=== PATIENT | male | born 1970 | race American Indian/Alaskan Native ===

== ENCOUNTER 2019-03-20 13:25 | Inpatient (IN) | payer OTHER ==
[2019-03-20 13:46] LABS: Basophils # (Auto) 0.1 K/mm3 (0.0-0.1); Basophils % (Auto) 0.5 % (0.0-1.8); Eosinophils % (Auto) 0.1 % (0.0-4.3); Hematocrit 43.5 % (35.5-45.6); Hemoglobin 14.8 gm/dl (11.8-15.2); Lymphocytes # (Auto) 1.6 K/mm3 (1.2-5.4); Lymphocytes % (Auto) 11.4 % (13.4-35.0); Mean Corpuscular HGB Conc 34 % (32-34); Mean Corpuscular Volume 82 fl (84-94); Monocytes % (Auto) 7.3 % (0.0-7.3); Platelet Count 256 K/mm3 (140-440); Red Blood Count 5.29 M/mm3 (3.65-5.03); Red Cell Distribution Width 12.2 % (13.2-15.2)
[2019-03-20 14:12] LABS: Alanine Aminotransferase 11 units/L (7-56); Albumin 4.1 g/dL (3.9-5); BUN/Creatinine Ratio 12; Blood Urea Nitrogen 12 mg/dL (9-20); Calcium 9.3 mg/dL (8.4-10.2); Hemolysis Index 9
[2019-03-20] MEDS ORDERED: BENTYL PO ONE (14:58)
[2019-03-20] MEDS ORDERED: ZOFRAN ODT PO ONE (14:58)
--- NOTE | 2019-03-20 14:58 | Emergency Department Report ---
ED Abdominal Pain HPI - General Chief Complaint: Abdominal Pain Stated Complaint: BODY WEAK/STOMACH PAIN Time Seen by Provider: 03/20/19 14:48 Source: patient Mode of arrival: Ambulatory Limitations: No Limitations - History of Present Illness Initial Comments: This is a 48-year-old male who presents to ED complaining of left-sided lower pelvic pain and back pain 3 days. Patient states that pain is localized left flank area that started Tuesday morning. Patient has Tuesday he had food from [employer] , otherwise no abnormal foods. Patient also states that he's had some nausea, feeling weak and intermittent chills. He denies dysuria, fever, diar oralia - Related Data Previous Rx's Medication Instructions Recorded Last Taken Type Aspirin EC 81 mg PO ONCE #30 tablet. 05/03/13 Unknown Rx Allergies Allergy/AdvReac Type Severity Reaction Status Date / Time No Known Allergies Allergy Verified 03/20/19 13:27 ED Review of Systems ROS: Stated complaint: BODY WEAK/STOMACH PAIN Other details as noted in HPI Comment: All other systems reviewed and negative ED Past Medical Hx - Past Medical History Hx Hypertension: No Hx CVA: No Hx Heart Attack/AMI: No Hx Congestive Heart Failure: No Hx Diabetes: No Hx GERD: No Hx Arthritis: No Hx Asthma: No Hx COPD: No Additional medical history: heart murmer - Surgical History Past Surgical History?: No - Social History Smoking Status: Never Smoker Substance Use Type: None - Medications Home Medications: Home Medications Medication Instructions Recorded Confirmed Last Taken Type Aspirin EC 81 mg PO ONCE #30 tablet. 05/03/13 03/20/19 Unknown Rx ED Physical Exam - General Limitations: No Limitations General appearance: alert, in no apparent distress - Head Head exam: Present: atraumatic, normocephalic - Eye Eye exam: Present: normal appearance - ENT ENT exam: Present: mucous membranes moist - Neck Neck exam: Present: normal inspection - Respiratory Respiratory exam: Present: normal lung sounds bilaterally. Absent: respiratory distress - Cardiovascular Cardiovascular Exam: Present: regular rate, normal rhythm. Absent: systolic murmur, diastolic murmur, rubs, gallop - GI/Abdominal GI/Abdominal exam: Present: soft, tenderness (to palpation of lower left quad), normal bowel sounds. Absent: distended - Rectal Rectal exam: Present: deferred - Extremities Exam Extremities exam: Present: normal inspection - Back Exam Back exam: Present: normal inspection - Neurological Exam Neurological exam: Present: alert, oriented X3 - Psychiatric Psychiatric exam: Present: normal affect, normal mood - Skin Skin exam: Present: warm, dry, intact, normal color. Absent: rash ED Course Vital Signs 03/20/19 03/20/19 03/20/19 13:30 23:34 23:41 Temperature 98.6 F 98.5 F 98.5 F Pulse Rate 104 H 90 90 Respiratory 18 18 18 Rate Blood Pressure 143/93 132/77 132/77 [Left] O2 Sat by Pulse 97 99 99 Oximetry - Reevaluation(s) Reevaluation #1: Patient is comfortable in his room. Patient is currently receiving 1 L of fluids and Unasyn. Vitals are stable patient is in no acute distress. 03/20/19 18:57 - Consultations Consultation #1: Hospitalist is Dr. Bowden made known about patient's case patient is to be admitted to the floor. 03/20/19 18:55 Consultation #2: Surgical attending Dr. Williamson was notified about the patient's case. Dr. Williamson states that he will come and assess the patient in the morning. 03/20/19 18:56 ED Medical Decision Making - Lab Data Result diagrams: 03/21/19 00:28 03/21/19 00:28 - Radiology Data Radiology results: report reviewed, image reviewed - Medical Decision Making This is a 48-year-old male who presents to ED complaining of left-sided flank pain and some nausea and back pain. CBC, CMP, urinalysis ordered. CBC shows mild leukocytosis. Urinalysis positive for leukocyte esterase, CT scan of the abdomen and pelvis ordered. See report above Pt received bentyl and Zofran in the ED. Pulse rate slightly elevated but otherwise Vital signs are normal Discussed findings with the patient. Discussed the patient and he will be admitted to the floor to his served within 24-48 hours. Patient is started on 1 L of fluids as well as antibiotics Critical care attestation.: If time is entered above; I have spent that time in minutes in the direct care of this critically ill patient, excluding procedure time. ED Disposition Clinical Impression: Acute diverticulitis Disposition: OP ADMIT IP TO THIS HOSP Is pt being admited?: Yes Does the pt Need Aspirin: No Condition: Stable
[2019-03-20 15:00] LABS: Bacteria,Urine 1+ /HPF (Negative); Bilirubin,Urine NEG (Negative); Blood,Urine MOD (Negative); Color,Urine Amber (Yellow); Mucus,Urine 3+ /HPF; Urobilinogen,Urine < 2.0 mg/dL (<2.0)
--- NOTE | 2019-03-20 17:26 | Cat Scan Report ---
CT abdomen pelvis wo con INDICATION / CLINICAL INFORMATION: Left lower quadrant pain with nausea, vomiting and dizziness. TECHNIQUE: All CT scans at this location are performed using CT dose reduction for ALARA by means of automated e xposure control. COMPARISON: None available. FINDINGS: ABDOMEN: The liver, spleen, gallbladder, bile ducts, pancreas, right adrenal gland and left kidney ar e normal. There is a small simple cyst-appearing lesion in the right kidney. There is a 2 cm left adr enal nodule which measures 3 Hounsfield units. No adenopathy is seen. The lung bases are clear. PELVIS: There is a fairly long segment of moderate concentric bowel wall thickening involving the dis jn descending colon and proximal sigmoid colon. Multiple diverticula are present in this region and the appearance is more suggestive of diverticulitis than perforated neoplasm. There is moderate infla mmation in the pericolonic fat. No definite extraluminal gas is seen. There is no evidence of bowel o bstruction or pneumoperitoneum. I do not identify an abscess. A normal appendix is present. The distal ureters, urinary bladder and prostate gland are normal. I do not identify a hernia. No acute osseous abnormality is seen. IMPRESSION: 1. Moderate, acute diverticulitis near the junction of the descending and sigmoid colon without absce ss. After the patient's acute episode resolves, colonoscopy may be helpful in excluding underlying ne oplasm. 2. 2 cm left adrenal adenoma. Signer Name: Jesus Faustin MD Signed: 03/20/2019 5:21 PM Workstation Name: [id number]
[2019-03-20] MEDS ORDERED: NACL 0.9% 1000 ML 1,000 ML IV ONE (18:33)
[2019-03-20] MEDS ORDERED: ZOSYN/NS 2.25 GM/50ML 2.25 GM/50 ML BAG IV ONE (18:34)
--- NOTE | 2019-03-20 20:52 | Event Note ---
Date: 03/20/19 Discussed case with ED and reviewed record. Will see patient tomorrow.
[2019-03-21] MEDS ORDERED: APRESOLINE IV PRN (01:12)
[2019-03-21 01:13] LABS: Basophils % (Auto) 0.3 % (0.0-1.8); Eosinophils % (Auto) 0.2 % (0.0-4.3); Hematocrit 42.5 % (35.5-45.6); Hemoglobin 13.8 gm/dl (11.8-15.2); Lymphocytes # (Auto) 1.5 K/mm3 (1.2-5.4); Lymphocytes % (Auto) 12.1 % (13.4-35.0); Mean Corpuscular HGB Conc 33 % (32-34); Mean Corpuscular Volume 84 fl (84-94); Monocytes # (Auto) 1.1 K/mm3 (0.0-0.8); Monocytes % (Auto) 8.8 % (0.0-7.3); Platelet Count 245 K/mm3 (140-440); Red Blood Count 5.09 M/mm3 (3.65-5.03); Red Cell Distribution Width 12.1 % (13.2-15.2)
--- NOTE | 2019-03-21 01:17 | History and Physical Report ---
<ANGELICA RASHID - Last Filed: 03/21/19 01:37> History of Present Illness Date of examination: 03/21/19 Date of admission: 03/20/19 19:09 Chief complaint: Abdominal pain History of present illness: 48-year-old -[place] male with history of obesity and hypertension who presents to [facility] ED with complaints of left upper quadrant and left lower quadrant pain with radiation to left flank. Patient states that he started experiencing intermittent left upper quadrant and left lower quadrant pain on Tuesday. He took a muscle relaxer and the pain went away. Yesterday morning he started having increased abdominal pain associated with left flank pain. He felt chills, weakness, and had bad taste in his mouth, and decided to come in for evaluation and treatment. Admits: Mild headache, fatigue, and malaise Denies: Nausea, vomiting, diarrhea, cough, hemoptysis, hematuria, dysuria or recent sick contacts Past History Past Medical History: other (heart murmur). denies: hypertension (review of medical records reveals hx of htn diagnosed 2013) Past Surgical History: denies: No surgical history Social history: lives with family. denies: smoking Family history: other (mother has history of diverticulitis) Medications and Allergies Allergies Allergy/AdvReac Type Severity Reaction Status Date / Time No Known Allergies Allergy Verified 03/20/19 13:27 Home Medications Medication Instructions Recorded Confirmed Last Taken Type Aspirin EC 81 mg PO ONCE #30 tablet. 05/03/13 03/20/19 Unknown Rx Active Meds: Active Medications Clonidine HCl (Catapres-Tts Patch) 0.2 mg TD QWEEK ZONIA Hydralazine HCl (Apresoline) 10 mg IV Q4HR PRN PRN Reason: Blood Pressure Levofloxacin/Dextrose (Levaquin 500mg/100ml) 500 mg in 100 mls @ 100 mls/hr IV Q24HR ZONIA; Protocol Metronidazole (Flagyl 500 Mg/100 Ml) 500 mg in 100 mls @ 100 mls/hr IV Q8H ZONIA; Protocol Sodium Chloride (Nacl 0.9% 1000 Ml) 1,000 mls @ 100 mls/hr IV DIRECT ZONIA Review of Systems All systems: negative (no additional unremarkable complaints except as noted below) Constitutional: fever, chills Gastrointestinal: abdominal pain (12 upper quadrant, left lower quadrant with radiation to the left flank) Exam - Physical Exam Narrative exam: Physical exam General appearance: Present: No acute distress, alert and oriented 3, pleasant, middle-age obese -[place] male - EENT Eyes: Present: PERRL, EOM intact ENT: hearing intact, normal dentition - Neck Neck: Present: supple, normal ROM - Respiratory Respiratory effort: Non-labored Respiratory: Clear to auscultation - Cardiovascular Heart rate: (bpm) Rhythm: regular Heart Sounds: Present: S1 & S2. Absent: rub, click - Extremities Extremities: no ischemia, pulses intact, abnormal - Peripheral Assessment Peripheral Pulses: within normal limits - Abdominal General gastrointestinal: Obese, soft, non-tender, normal bowel sounds - Integumentary Integumentary: Present: warm, dry - Musculoskeletal Musculoskeletal: Normal gait, able to move all extremities -Neurological Neurological: CN II-XII grossly intact - Psychiatric Psychiatric: cooperative - Constitutional Vitals: Temp Pulse Resp BP Pulse Ox 99.8 F H 105 H 20 141/94 96 03/21/19 00:28 03/21/19 00:28 03/21/19 00:28 03/21/19 00:28 03/21/19 00:28 Results - Labs CBC & Chem 7: 03/21/19 00:28 03/21/19 00:28 Labs: Laboratory Last Values WBC 14.3 K/mm3 (4.5-11.0) H 03/20/19 13:37 RBC 5.29 M/mm3 (3.65-5.03) H 03/20/19 13:37 Hgb 14.8 gm/dl (11.8-15.2) 03/20/19 13:37 Hct 43.5 % (35.5-45.6) 03/20/19 13:37 MCV 82 fl (84-94) L 03/20/19 13:37 MCH 28 pg (28-32) 03/20/19 13:37 MCHC 34 % (32-34) 03/20/19 13:37 RDW 12.2 % (13.2-15.2) L 03/20/19 13:37 Plt Count 256 K/mm3 (140-440) 03/20/19 13:37 Lymph % (Auto) 11.4 % (13.4-35.0) L 03/20/19 13:37 [place] % (Auto) 7.3 % (0.0-7.3) 03/20/19 13:37 Eos % (Auto) 0.1 % (0.0-4.3) 03/20/19 13:37 Baso % (Auto) 0.5 % (0.0-1.8) 03/20/19 13:37 Lymph # 1.6 K/mm3 (1.2-5.4) 03/20/19 13:37 [place] # 1.0 K/mm3 (0.0-0.8) H 03/20/19 13:37 Eos # 0.0 K/mm3 (0.0-0.4) 03/20/19 13:37 Baso # 0.1 K/mm3 (0.0-0.1) 03/20/19 13:37 Seg Neutrophils % 80.7 % (40.0-70.0) H 03/20/19 13:37 Seg Neutrophils # 11.5 K/mm3 (1.8-7.7) H 03/20/19 13:37 Sodium 139 mmol/L (137-145) 03/20/19 13:37 Potassium 4.8 mmol/L (3.6-5.0) 03/20/19 13:37 Chloride 101.3 mmol/L (98-107) 03/20/19 13:37 Carbon Dioxide 27 mmol/L (22-30) 03/20/19 13:37 16 mmol/L 03/20/19 13:37 BUN 12 mg/dL (9-20) 03/20/19 13:37 1.0 mg/dL (0.8-1.5) 03/20/19 13:37 Estimated GFR > 60 ml/min 03/20/19 13:37 12 % 03/20/19 13:37 Glucose 105 mg/dL (75-100) H 03/20/19 13:37 Calcium 9.3 mg/dL (8.4-10.2) 03/20/19 13:37 0.70 mg/dL (0.1-1.2) 03/20/19 13:37 AST 11 units/L (5-40) 03/20/19 13:37 ALT 11 units/L (7-56) 03/20/19 13:37 126 units/L (35-129) 03/20/19 13:37 8.7 g/dL (6.3-8.2) H 03/20/19 13:37 4.1 g/dL (3.9-5) 03/20/19 13:37 0.9 % 03/20/19 13:37 Tania (Yellow) 03/20/19 14:38 Cloudy (Clear) 03/20/19 14:38 5.0 (5.0-7.0) 03/20/19 14:38 Ur Specific [place] 1.033 (1.003-1.030) H 03/20/19 14:38 30 mg/dl mg/dL (Negative) 03/20/19 14:38 Neg mg/dL (Negative) 03/20/19 14:38 20 mg/dL (Negative) 03/20/19 14:38 Mod (Negative) 03/20/19 14:38 Neg (Negative) 03/20/19 14:38 Neg (Negative) 03/20/19 14:38 < 2.0 mg/dL (<2.0) 03/20/19 14:38 Ur Leukocyte Esterase Tr (Negative) 03/20/19 14:38 19.0 /HPF (0.0-6.0) H 03/20/19 14:38 7.0 /HPF (0.0-6.0) 03/20/19 14:38 U Epithel Cells (Auto) 1.0 /HPF (0-13.0) 03/20/19 14:38 1+ /HPF (Negative) 03/20/19 14:38 3+ /HPF 03/20/19 14:38 - Imaging and Cardiology Imaging and Cardiology: CT Abd/Pelvis: FINDINGS: ABDOMEN: The liver, spleen, gallbladder, bile ducts, pancreas, right adrenal gland and left kidney are normal. There is a small simple cyst-appearing lesion in the right kidney. There is a 2 cm left adrenal nodule which measures 3 Hounsfield units. No adenopathy is seen. The lung bases are clear. PELVIS: There is a fairly long segment of moderate concentric bowel wall thickening involving the distal descending colon and proximal sigmoid colon. Multiple diverticula are present in this region and the appearance is more suggestive of diverticulitis than perforated neoplasm. There is moderate inflammation in the pericolonic fat. No definite extraluminal gas is seen. There is no evidence of bowel obstruction or pneumoperitoneum. I do not identify an abscess. A normal appendix is present. The distal ureters, urinary bladder and prostate gland are normal. I do not identify a hernia. No acute osseous abnormality is seen. IMPRESSION: 1. Moderate, acute diverticulitis near the junction of the descending and sigmoid colon without abscess. After the patient's acute episode resolves, colonoscopy may be helpful in excluding underlying neoplasm. 2. 2 cm left adrenal adenoma. Assessment and Plan Assessment and plan: 48-year-old -[place] male with history of obesity and hypertension who presents to [facility] ED with complaints of left upper quadrant and left lower quadrant pain with radiation to left flank. 1. Diverticulitis -CT abdomen and pelvis showed: Moderate, acute diverticulitis near the junction of the descending and sigmoid colon without abscess -Dr. Hodgson (General Surgery) following -WBC initially 14.3 trending down to 12.4 -IV Levaquin and IV Flagyl -Nothing by mouth -IVF 2. 2 cm left adrenal adenoma -Incidentally seen on CT abdomen and pelvis -Outpatient follow-up 3. Acute Abdominal Pain -Likely due to #1 -Continue supportive care -Pain management 4. Urinary tract infection -Urine WBC 19.0 -Urine culture pending -On IV antibiotics 5. Hypertension -Monitor BP -IV hydralazine when necessary 6. DVT PPX -on Lovenox Advance Directives: No VTE prophylaxis?: Chemical Plan of care discussed with patient/family: Yes <CALEB HARVEY - Last Filed: 03/21/19 02:24> History of Present Illness Date of admission: 03/20/19 19:09 Medications and Allergies Active Meds: Active Medications Acetaminophen (Tylenol) 650 mg AL Q4H PRN PRN Reason: Pain MILD(1-3)/Fever >100.5/SARKAR Enoxaparin Sodium (Lovenox) 40 mg SUB-Q QDAY@2200 ZONIA Hydralazine HCl (Apresoline) 10 mg IV Q4HR PRN PRN Reason: Blood Pressure Levofloxacin/Dextrose (Levaquin 500mg/100ml) 500 mg in 100 mls @ 100 mls/hr IV Q24HR ZONIA; Protocol Metronidazole (Flagyl 500 Mg/100 Ml) 500 mg in 100 mls @ 100 mls/hr IV Q8H ZONIA; Protocol Sodium Chloride (Nacl 0.9% 1000 Ml) 1,000 mls @ 100 mls/hr IV DIRECT ZONIA Ondansetron HCl (Zofran) 4 mg IV Q8H PRN PRN Reason: Nausea And Vomiting Sodium Chloride (Sodium Chloride Flush Syringe 10 Ml) 10 ml IV BID ZONIA Sodium Chloride (Sodium Chloride Flush Syringe 10 Ml) 10 ml IV PRN PRN PRN Reason: LINE FLUSH Exam - Constitutional Vitals: Temp Pulse Resp BP Pulse Ox 99.8 F H 105 H 20 141/94 96 03/21/19 00:28 03/21/19 00:28 03/21/19 00:28 03/21/19 00:28 03/21/19 00:28 Results - Labs CBC & Chem 7: 03/21/19 00:28 03/21/19 00:28 Labs: Laboratory Last Values WBC 12.4 K/mm3 (4.5-11.0) H 03/21/19 00:28 RBC 5.09 M/mm3 (3.65-5.03) H 03/21/19 00:28 Hgb 13.8 gm/dl (11.8-15.2) 03/21/19 00: Hct 42.5 % (35.5-45.6) 03/21/19 00: MCV 84 fl (84-94) 03/21/19 00: MCH 27 pg (28-32) L 03/21/19 00: MCHC 33 % (32-34) 03/21/19 00: RDW 12.1 % (13.2-15.2) L 03/21/19 00: Plt Count 245 K/mm3 (140-440) 03/21/19 00: Lymph % (Auto) 12.1 % (13.4-35.0) L 03/21/19 00:28 [place] % (Auto) 8.8 % (0.0-7.3) H 03/21/19 00: Eos % (Auto) 0.2 % (0.0-4.3) 03/21/19 00: Baso % (Auto) 0.3 % (0.0-1.8) 03/21/19 00: Lymph # 1.5 K/mm3 (1.2-5.4) 03/21/19 00:28 [place] # 1.1 K/mm3 (0.0-0.8) H 03/21/19 00:28 Eos # 0.0 K/mm3 (0.0-0.4) 03/21/19 00:28 Baso # 0.0 K/mm3 (0.0-0.1) 03/21/19 00:28 Seg Neutrophils % 78.6 % (40.0-70.0) H 03/21/19 00: Seg Neutrophils # 9.7 K/mm3 (1.8-7.7) H 03/21/19 00:28 Sodium 140 mmol/L (137-145) 03/21/19 00: Potassium 4.2 mmol/L (3.6-5.0) 03/21/19 00: Chloride 100.9 mmol/L (98-107) 03/21/19 00: Carbon Dioxide 26 mmol/L (22-30) 03/21/19 00:28 17 mmol/L 03/21/19 00:28 BUN 13 mg/dL (9-20) 03/21/19 00:28 1.1 mg/dL (0.8-1.5) 03/21/19 00:28 Estimated GFR > 60 ml/min 03/21/19 00:28 12 % 03/21/19 00:28 Glucose 120 mg/dL (75-100) H 03/21/19 00:28 Calcium 9.1 mg/dL (8.4-10.2) 03/21/19 00:28 0.70 mg/dL (0.1-1.2) 03/20/19 13:37 AST 11 units/L (5-40) 03/20/19 13:37 ALT 11 units/L (7-56) 03/20/19 13:37 126 units/L (35-129) 03/20/19 13:37 8.7 g/dL (6.3-8.2) H 03/20/19 13:37 4.1 g/dL (3.9-5) 03/20/19 13:37 0.9 % 03/20/19 13:37 Yellow (Yellow) 03/21/19 00:57 Clear (Clear) 03/21/19 00:57 5.0 (5.0-7.0) 03/21/19 00:57 Ur Specific [place] 1.023 (1.003-1.030) 03/21/19 00:57 30 mg/dl mg/dL (Negative) 03/21/19 00:57 Neg mg/dL (Negative) 03/21/19 00:57 20 mg/dL (Negative) 03/21/19 00:57 Lg (Negative) 03/21/19 00:57 Neg (Negative) 03/21/19 00:57 Neg (Negative) 03/21/19 00:57 < 2.0 mg/dL (<2.0) 03/21/19 00:57 Ur Leukocyte Esterase Tr (Negative) 03/21/19 00:57 15.0 /HPF (0.0-6.0) H 03/21/19 00:57 9.0 /HPF (0.0-6.0) 03/21/19 00:57 U Epithel Cells (Auto) < 1.0 /HPF (0-13.0) 03/21/19 00:57 1+ /HPF (Negative) 03/20/19 14:38 1+ /HPF 03/21/19 00:57 Presumptive negative 03/21/19 00:57 Presumptive negative 03/21/19 00:57 Ur Barbiturates Screen Presumptive negative 03/21/19 00:57 Ur Phencyclidine Scrn Presumptive negative 03/21/19 00:57 Ur Amphetamines Screen Presumptive negative 03/21/19 00:57 U Benzodiazepines Scrn Presumptive negative 03/21/19 00:57 Presumptive negative 03/21/19 00:57 U Marijuana (THC) Screen Presumptive negative 03/21/19 00:57 Assessment and Plan Assessment and plan: 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 48 year old man with no medical problem is being evualated for LLQ abd pain, found to have acute diverticulitis/UTI. Agree with plan as stated above, monitor blood pressure.
[2019-03-21 01:30] LABS: Bilirubin,Urine NEG (Negative); Blood,Urine LG (Negative); Color,Urine Yellow (Yellow); Mucus,Urine 1+ /HPF; Urobilinogen,Urine < 2.0 mg/dL (<2.0)
[2019-03-21 01:32] LABS: BUN/Creatinine Ratio 12; Blood Urea Nitrogen 13 mg/dL (9-20); Calcium 9.1 mg/dL (8.4-10.2); Hemolysis Index 3
[2019-03-21] MEDS ORDERED: TYLENOL PR PRN (01:34)
[2019-03-21] MEDS ORDERED: ZOFRAN IV PRN (01:34)
[2019-03-21] MEDS ORDERED: SODIUM CHLORIDE FLUSH SYRINGE 10 ML IV PRN (01:34)
[2019-03-21 02:18] LABS: Amphetamine Screen,Urine PRESUMPTIVE NEGATIVE; Benzodiazepines Screen,Urine PRESUMPTIVE NEGATIVE; Cannabinoid Screen,Urine PRESUMPTIVE NEGATIVE; Cocaine Screen,Urine PRESUMPTIVE NEGATIVE; Methadone Screen,Urine PRESUMPTIVE NEGATIVE; Opiate Screen,Urine PRESUMPTIVE NEGATIVE
[2019-03-21] MEDS ORDERED: DILAUDID IV PRN (02:55)
[2019-03-21] MEDS ORDERED: MORPHINE IV PRN (02:55)
[2019-03-21] MEDS: FLAGYL 500 MG/100 ML 500 MG/100 ML BAG IV SCH ×3 (03:52→18:39)
--- NOTE | 2019-03-21 08:02 | Gastroenterology Consultation ---
History of Present Illness - Reason for Consult Consult date: 03/21/19 diverticulitis Requesting physician: ANGELICA RASHID - History of Present Illness 48-year-old -[place] male with history of obesity and hypertension who presents to [facility] ED with complaints of left upper quadrant and left lower quadrant pain with radiation to left flank. Patient states that he started experiencing the pain about 3 days ago, got more and more severe, sharp, and associated with loose stools and chills, therefore come to ER. He reports overnight with Abx the symptoms began to improve so the pain is only mild as of now Past History Past Medical History: other (heart murmur). denies: hypertension (review of medical records reveals hx of htn diagnosed 2013) Past Surgical History: denies: No surgical history Social history: lives with family. denies: smoking Family history: other (mother has history of diverticulitis) Home meds updated/reviewed and obtained Past History Past Medical History: other (heart murmur). denies: hypertension (review of medical records reveals hx of htn diagnosed 2013) Past Surgical History: denies: No surgical history Social history: lives with family. denies: smoking Family history: other (mother has history of diverticulitis) Medications and Allergies Allergies Allergy/AdvReac Type Severity Reaction Status Date / Time No Known Allergies Allergy Verified 03/20/19 13:27 Home Medications Medication Instructions Recorded Confirmed Last Taken Type Aspirin EC 81 mg PO ONCE #30 tablet. 05/03/13 03/20/19 Unknown Rx Active Meds: Active Medications Acetaminophen (Tylenol) 650 mg [place] Q4H PRN PRN Reason: Pain MILD(1-3)/Fever >100.5/SARKAR Enoxaparin Sodium (Lovenox) 40 mg SUB-Q QDAY@2200 ZONIA Hydralazine HCl (Apresoline) 10 mg IV Q4HR PRN PRN Reason: Blood Pressure Hydromorphone HCl (Dilaudid) 0.5 mg IV Q3H PRN PRN Reason: Pain , Severe (7-10) Stop: 03/22/19 12:00 Levofloxacin/Dextrose (Levaquin 500mg/100ml) 500 mg in 100 mls @ 100 mls/hr IV Q24HR ZONIA; Protocol Metronidazole (Flagyl 500 Mg/100 Ml) 500 mg in 100 mls @ 100 mls/hr IV Q8H ZONIA; Protocol Last Admin: 03/21/19 03:52 Dose: 100 mls/hr Documented by: Sodium Chloride (Nacl 0.9% 1000 Ml) 1,000 mls @ 100 mls/hr IV DIRECT ZONIA Morphine Sulfate (Morphine) 2 mg IV Q3H PRN PRN Reason: Pain, Moderate (4-6) Ondansetron HCl (Zofran) 4 mg IV Q8H PRN PRN Reason: Nausea And Vomiting Sodium Chloride (Sodium Chloride Flush Syringe 10 Ml) 10 ml IV BID ZONIA Sodium Chloride (Sodium Chloride Flush Syringe 10 Ml) 10 ml IV PRN PRN PRN Reason: LINE FLUSH Review of Systems - Review of Systems All systems: negative Constitutional: chills Gastrointestinal: abdominal pain, diarrhea Exam - Constitutional Vital Signs: Temp Pulse Resp BP Pulse Ox 98.8 F 82 18 101/52 94 03/21/19 05:48 03/21/19 05:48 03/21/19 05:48 03/21/19 05:48 03/21/19 05:48 General appearance: no acute distress - EENT Eyes: EOM intact ENT: hearing intact - Neck Neck: normal ROM - Respiratory Respiratory effort: normal Respiratory: bilateral: CTA - Cardiovascular Rhythm: regular - Gastrointestinal General gastrointestinal: Present: soft, other (Mild TTP LLQ) - Integumentary Integumentary: Present: warm - Musculoskeletal Musculoskeletal: normal - Neurologic Neurological: alert and oriented x3 - Psychiatric Psychiatric: appropriate mood/affect - Labs CBC & Chem 7: 03/21/19 00:28 03/21/19 00:28 Lab Results: Laboratory Results - last 24 hr 03/20/19 03/20/19 03/20/19 13:37 13:37 14:38 WBC 14.3 H RBC 5.29 H Hgb 14.8 Hct 43.5 MCV 82 L MCH 28 MCHC 34 RDW 12.2 L Plt Count 256 Lymph % (Auto) 11.4 L [place] % (Auto) 7.3 Eos % (Auto) 0.1 Baso % (Auto) 0.5 Lymph # 1.6 [place] # 1.0 H Eos # 0.0 Baso # 0.1 Seg Neutrophils % 80.7 H Seg Neutrophils # 11.5 H Sodium 139 Potassium 4.8 Chloride 101.3 Carbon Dioxide 27 Anion Gap 16 BUN 12 Creatinine 1.0 Estimated GFR > 60 BUN/Creatinine Ratio 12 Glucose 105 H Calcium 9.3 Total Bilirubin 0.70 AST 11 ALT 11 Alkaline Phosphatase 126 Total Protein 8.7 H Albumin 4.1 Albumin/Globulin Ratio 0.9 Urine Color Tania Urine Turbidity Cloudy Urine pH 5.0 Ur Specific [place] 1.033 H Urine Protein 30 mg/dl Urine Glucose (UA) Neg Urine Ketones 20 Urine Blood Mod Urine Nitrite Neg Urine Bilirubin Neg Urine Urobilinogen < 2.0 Ur Leukocyte Esterase Tr Urine WBC (Auto) 19.0 H Urine RBC (Auto) 7.0 U Epithel Cells (Auto) 1.0 Urine Bacteria (Auto) 1+ Urine Mucus 3+ Urine Opiates Screen Urine Methadone Screen Ur Barbiturates Screen Ur Phencyclidine Scrn Ur Amphetamines Screen U Benzodiazepines Scrn Urine Cocaine Screen U Marijuana (THC) Screen Drugs of Abuse Note 03/21/19 03/21/19 03/21/19 00:28 00:28 00:57 WBC 12.4 H RBC 5.09 H Hgb 13.8 Hct 42.5 MCV 84 MCH 27 L MCHC 33 RDW 12.1 L Plt Count 245 Lymph % (Auto) 12.1 L [place] % (Auto) 8.8 H Eos % (Auto) 0.2 Baso % (Auto) 0.3 Lymph # 1.5 [place] # 1.1 H Eos # 0.0 Baso # 0.0 Seg Neutrophils % 78.6 H Seg Neutrophils # 9.7 H Sodium 140 Potassium 4.2 Chloride 100.9 Carbon Dioxide 26 Anion Gap 17 BUN 13 Creatinine 1.1 Estimated GFR > 60 BUN/Creatinine Ratio 12 Glucose 120 H Calcium 9.1 Total Bilirubin AST ALT Alkaline Phosphatase Total Protein Albumin Albumin/Globulin Ratio Urine Color Urine Turbidity Urine pH Ur Specific [place] Urine Protein Urine Glucose (UA) Urine Ketones Urine Blood Urine Nitrite Urine Bilirubin Urine Urobilinogen Ur Leukocyte Esterase Urine WBC (Auto) Urine RBC (Auto) U Epithel Cells (Auto) Urine Bacteria (Auto) Urine Mucus Urine Opiates Screen Presumptive negative Urine Methadone Screen Presumptive negative Ur Barbiturates Screen Presumptive negative Ur Phencyclidine Scrn Presumptive negative Ur Amphetamines Screen Presumptive negative U Benzodiazepines Scrn Presumptive negative Urine Cocaine Screen Presumptive negative U Marijuana (THC) Screen Presumptive negative Drugs of Abuse Note Disclamer 03/21/19 00:57 WBC RBC Hgb Hct MCV MCH MCHC RDW Plt Count Lymph % (Auto) [place] % (Auto) Eos % (Auto) Baso % (Auto) Lymph # [place] # Eos # Baso # Seg Neutrophils % Seg Neutrophils # Sodium Potassium Chloride Carbon Dioxide Anion Gap BUN Creatinine Estimated GFR BUN/Creatinine Ratio Glucose Calcium Total Bilirubin AST ALT Alkaline Phosphatase Total Protein Albumin Albumin/Globulin Ratio Urine Color Yellow Urine Turbidity Clear Urine pH 5.0 Ur Specific [place] 1.023 Urine Protein 30 mg/dl Urine Glucose (UA) Neg Urine Ketones 20 Urine Blood Lg Urine Nitrite Neg Urine Bilirubin Neg Urine Urobilinogen < 2.0 Ur Leukocyte Esterase Tr Urine WBC (Auto) 15.0 H Urine RBC (Auto) 9.0 U Epithel Cells (Auto) < 1.0 Urine Bacteria (Auto) Urine Mucus 1+ Urine Opiates Screen Urine Methadone Screen Ur Barbiturates Screen Ur Phencyclidine Scrn Ur Amphetamines Screen U Benzodiazepines Scrn Urine Cocaine Screen U Marijuana (THC) Screen Drugs of Abuse Note Assessment and Plan Patient is clinically rapidly improving, I will start him on a full liquid diet, if he does well with lunch advance to bland diet for dinner and if does well can discharge tomorrow morning with total 5 days abx of cipro/flagyl and he should follow up with me in clinic in 2-4 weeks as an outpatient - Patient Problems (1) Acute diverticulitis Current Visit: Yes Status: Acute
[2019-03-21] MEDS: NACL 0.9% 1000 ML 1,000 ML IV SCH ×2 (08:05→18:41)
[2019-03-21] MEDS: LEVAQUIN 500MG/100ML 500 MG/100 ML BAG IV SCH (09:46)
[2019-03-21] MEDS: SODIUM CHLORIDE FLUSH SYRINGE 10 ML IV SCH ×2 (09:53→21:33)
[2019-03-21] MEDS ORDERED: CATAPRES-TTS PATCH TD SCH (10:00)
--- NOTE | 2019-03-21 13:48 | Consultation ---
History of Present Illness Consult date: 03/21/19 Reason for consult: abdominal pain Requesting physician: ANGELICA RASHID Chief complaint: left sided abdominal pain - History of present illness History of present illness: 48yo M is well-known to me as we took care of his mother recently. He reports that he began to have left-sided abdominal pain that went to the back on Tuesday. It then progressed to having nausea and chills. Denies any fevers. He has never had anything like this before. Now that he has been in the hospital, he is feeling better. Denies any nausea or vomiting at this time. He would like to drink something. Denies any blood per rectum or any melena. Evaluation by the emergency department revealed findings suggestive of acute diverticulitis. General surgery consult for this issue. Past History Past Medical History: other (heart murmur). denies: hypertension (review of medical records reveals hx of htn diagnosed 2013) Past Surgical History: denies: No surgical history Social history: lives with family. denies: smoking, alcohol abuse Family history: other (mother has history of diverticulitis) Medications and Allergies Allergies Allergy/AdvReac Type Severity Reaction Status Date / Time No Known Allergies Allergy Verified 03/20/19 13:27 Home Medications Medication Instructions Recorded Confirmed Last Taken Type Aspirin EC 81 mg PO ONCE #30 tablet. 05/03/13 03/20/19 Unknown Rx Active Meds: Active Medications Acetaminophen (Tylenol) 650 mg [place] Q4H PRN PRN Reason: Pain MILD(1-3)/Fever >100.5/SARKAR Enoxaparin Sodium (Lovenox) 40 mg SUB-Q QDAY@2200 ZONIA Hydralazine HCl (Apresoline) 10 mg IV Q4HR PRN PRN Reason: Blood Pressure Hydromorphone HCl (Dilaudid) 0.5 mg IV Q3H PRN PRN Reason: Pain , Severe (7-10) Stop: 03/22/19 12:00 Levofloxacin/Dextrose (Levaquin 500mg/100ml) 500 mg in 100 mls @ 100 mls/hr IV Q24HR ZONIA; Protocol Last Admin: 03/21/19 09:46 Dose: 100 mls/hr Documented by: Metronidazole (Flagyl 500 Mg/100 Ml) 500 mg in 100 mls @ 100 mls/hr IV Q8H ZONIA; Protocol Last Admin: 03/21/19 09:46 Dose: 100 mls/hr Documented by: Sodium Chloride (Nacl 0.9% 1000 Ml) 1,000 mls @ 100 mls/hr IV DIRECT [facility] Last Admin: 03/21/19 08:05 Dose: 100 mls/hr Documented by: Morphine Sulfate (Morphine) 2 mg IV Q3H PRN PRN Reason: Pain, Moderate (4-6) Ondansetron HCl (Zofran) 4 mg IV Q8H PRN PRN Reason: Nausea And Vomiting Sodium Chloride (Sodium Chloride Flush Syringe 10 Ml) 10 ml IV BID [facility] Last Admin: 03/21/19 09:53 Dose: 10 ml Documented by: Sodium Chloride (Sodium Chloride Flush Syringe 10 Ml) 10 ml IV PRN PRN PRN Reason: LINE FLUSH Review of Systems - Constitutional chills, no fever, no sweats, no chronic pain - Cardiovascular no chest pain, no shortness of breath - Respiratory no cough - Gastrointestinal abdominal pain, nausea, no vomiting, no change in bowel habits, no BRBPR, no melena - Genitourinary flank pain - Muskuloskeletal low back pain - Integumentary no rash, no sores, no wounds Exam Vital Signs Temp Pulse Resp BP Pulse Ox 98.6 F 104 H 18 143/93 97 03/20/19 13:30 03/20/19 13:30 03/20/19 13:30 03/20/19 13:30 03/20/19 13:30 - General physical appearance Positive: no distress, no pain, obese, other (pleasant. Does not appear ill. Moves easily in bed) - Eyes Positive: normal occular movement - Respiratory Positive: normal expansion, normal respiratory effort, clear to auscultation - Cardiovascular Rhythm: regular - Abdomen Abdomen: Present: soft, bowel sounds normal. Absent: tender, distended, masses, rebound, guarding, rigid, wound, surgical scars - Integumentary no rash, no growths, no abnormal pigmentation - Neurologic Neurologic: alert and oriented to time, place and person, motor strength and sensation are grossly intact - Psychiatric Psychiatric: appropriate mood/affect, intact judgment & insight, cooperative Results - Labs 03/21/19 00:28 03/21/19 00:28 Abnormal lab results 03/20/19 03/20/1919 Range/Units 13:37 14:38 00:28 WBC 12.4 H (4.5-11.0) K/mm3 RBC 5.09 H (3.65-5.03) M/mm3 MCH 27 L (28-32) pg RDW 12.1 L (13.2-15.2) % Lymph % (Auto) 12.1 L (13.4-35.0) % [place] % (Auto) 8.8 H (0.0-7.3) % [place] # 1.1 H (0.0-0.8) K/mm3 Seg Neutrophils % 78.6 H (40.0-70.0) % Seg Neutrophils # 9.7 H (1.8-7.7) K/mm3 Glucose 105 H (75-100) mg/dL Total Protein 8.7 H (6.3-8.2) g/dL Ur Specific [place] 1.033 H (1.003-1.030) Urine WBC (Auto) 19.0 H (0.0-6.0) /HPF 03/21/19 03/21/19 Range/Units 00:28 00:57 WBC (4.5-11.0) K/mm3 RBC (3.65-5.03) M/mm3 MCH (28-32) pg RDW (13.2-15.2) % Lymph % (Auto) (13.4-35.0) % [place] % (Auto) (0.0-7.3) % [place] # (0.0-0.8) K/mm3 Seg Neutrophils % (40.0-70.0) % Seg Neutrophils # (1.8-7.7) K/mm3 Glucose 120 H (75-100) mg/dL Total Protein (6.3-8.2) g/dL Ur Specific [place] (1.003-1.030) Urine WBC (Auto) 15.0 H (0.0-6.0) /HPF Diabetes panel 03/20/19 03/21/19 Range/Units 13:37 00:28 Sodium 139 140 (137-145) mmol/L Potassium 4.8 4.2 (3.6-5.0) mmol/L Chloride 101.3 100.9 (98-107) mmol/L Carbon Dioxide 27 26 (22-30) mmol/L BUN 12 13 (9-20) mg/dL Creatinine 1.0 1.1 (0.8-1.5) mg/dL Glucose 105 H 120 H (75-100) mg/dL Calcium 9.3 9.1 (8.4-10.2) mg/dL AST 11 (5-40) units/L ALT 11 (7-56) units/L Alkaline Phosphatase 126 (35-129) units/L Total Protein 8.7 H (6.3-8.2) g/dL Albumin 4.1 (3.9-5) g/dL Calcium panel 03/20/19 03/21/19 Range/Units 13:37 00:28 Calcium 9.3 9.1 (8.4-10.2) mg/dL Albumin 4.1 (3.9-5) g/dL Pituitary panel 03/20/19 03/21/19 Range/Units 13:37 00:28 Sodium 139 140 (137-145) mmol/L Potassium 4.8 4.2 (3.6-5.0) mmol/L Chloride 101.3 100.9 (98-107) mmol/L Carbon Dioxide 27 26 (22-30) mmol/L BUN 12 13 (9-20) mg/dL Creatinine 1.0 1.1 (0.8-1.5) mg/dL Glucose 105 H 120 H (75-100) mg/dL Calcium 9.3 9.1 (8.4-10.2) mg/dL Adrenal panel 03/20/19 03/21/19 Range/Units 13:37 00:28 Sodium 139 140 (137-145) mmol/L Potassium 4.8 4.2 (3.6-5.0) mmol/L Chloride 101.3 100.9 (98-107) mmol/L Carbon Dioxide 27 26 (22-30) mmol/L BUN 12 13 (9-20) mg/dL Creatinine 1.0 1.1 (0.8-1.5) mg/dL Glucose 105 H 120 H (75-100) mg/dL Calcium 9.3 9.1 (8.4-10.2) mg/dL Total Bilirubin 0.70 (0.1-1.2) mg/dL AST 11 (5-40) units/L ALT 11 (7-56) units/L Alkaline Phosphatase 126 (35-129) units/L Total Protein 8.7 H (6.3-8.2) g/dL Albumin 4.1 (3.9-5) g/dL - Imaging CT scan - abdomen: report reviewed, image reviewed CT scan - pelvis: report reviewed, image reviewed Assessment and Plan - Patient Problems (1) Acute diverticulitis Current Visit: Yes Status: Acute Plan to address problem: Pt stable. He is already feeling better. Pt has uncomplicated diverticulitis at this point. No surgical intervention needed at this time. Discussed need to increase water and fiber in diet. He will need an out-pt c-scope when he recovers. Pt was agreeable. Rec: 1) Cont Abx 2) May have liquid diet 3) c-scope as out-pt 4) f/u prn. Please call with questions. Time=30min
--- NOTE | 2019-03-21 16:37 | Progress Note ---
Assessment and Plan 48-year-old -Citizen Of [place] male with history of obesity and hypertension who presents to [facility] ED with complaints of left upper quadrant and left lower quadrant pain with radiation to left flank. 1. Acute Diverticulitis with SIRS, POA -CT abdomen and pelvis showed: Moderate, acute diverticulitis near the junction of the descending and sigmoid colon without abscess -Dr. Hodgson (General Surgery) consulted, no acute surgical need -WBC initially 14.3 trending down to 12.4 -Continue IV Levaquin and IV Flagyl -Advance diet as tolerated -IVF 2. 2 cm left adrenal adenoma -Incidentally seen on CT abdomen and pelvis -Outpatient follow-up 3. Acute Abdominal Pain -Likely due to #1 -Continue supportive care -Pain management 4. Urinary tract infection -Urine WBC 19.0 -Urine culture pending -On IV antibiotics 5. Hypertension -Monitor BP -IV hydralazine when necessary 6. DVT PPX -on [facility] physical: GENERAL: well-developed morbidly obese -Citizen Of [place] male lying on bed appeared to be in no discomfort. HEENT: Normocephalic. Atraumatic. No conjunctival congestion or icterus. Patient has moist mucous membranes. NECK: Supple. Trachea midline. CHEST/LUNGS: Clear to auscultated bilaterally, breathing nonlabored. No wheezes crackles or rhonchi. HEART/CARDIOVASCULAR: Regular in rate and rhythm. S1 and S2 positive. ABDOMEN: Abdomen is soft, nontender. Patient has normal bowel sounds. SKIN: There is no rash. Warm and dry. NEURO: No focal motor deficit. Follows command. MUSCULOSKELETAL: No joint effusion or tenderness. EXTRIMITY: No edema, no cyanosis or clubbing. PSYCH: Cooperative. Subjective Date of service: 03/21/19 Interval history: Patient seen and examined. Medical records and medication list reviewed. No acute event overnight noted by the RN. Patient denies any chest pain or difficulty breathing. Patient is tolerating full liquid diet. Discussed plan of care at bedside with patient. Objective - Constitutional Vitals: Vital Signs - 12hr 03/21/19 03/21/19 05:48 12:44 Temperature 98.8 F 98.4 F Pulse Rate 82 89 Respiratory 18 20 Rate Blood Pressure 101/52 106/86 O2 Sat by Pulse 94 97 Oximetry - Labs CBC & Chem 7: 03/22/19 04:31 03/22/19 04:31 Labs: Abnormal lab results 03/21/19 03/21/19 03/21/19 Range/Units 00:28 00:28 00:57 WBC 12.4 H (4.5-11.0) K/mm3 RBC 5.09 H (3.65-5.03) M/mm3 MCH 27 L (28-32) pg RDW 12.1 L (13.2-15.2) % Lymph % (Auto) 12.1 L (13.4-35.0) % [place] % (Auto) 8.8 H (0.0-7.3) % [place] # 1.1 H (0.0-0.8) K/mm3 Seg Neutrophils % 78.6 H (40.0-70.0) % Seg Neutrophils # 9.7 H (1.8-7.7) K/mm3 Glucose 120 H (75-100) mg/dL Urine WBC (Auto) 15.0 H (0.0-6.0) /HPF
[2019-03-21] MEDS ORDERED: LOVENOX SUB-Q SCH (22:00)
[2019-03-22] MEDS: FLAGYL 500 MG/100 ML 500 MG/100 ML BAG IV SCH ×2 (03:12→10:51)
[2019-03-22 05:11] LABS: Basophils % (Auto) 0.6 % (0.0-1.8); Eosinophils % (Auto) 1.1 % (0.0-4.3); Hematocrit 37.9 % (35.5-45.6); Hemoglobin 12.6 gm/dl (11.8-15.2); Lymphocytes # (Auto) 1.3 K/mm3 (1.2-5.4); Lymphocytes % (Auto) 34.4 % (13.4-35.0); Mean Corpuscular HGB Conc 33 % (32-34); Mean Corpuscular Volume 84 fl (84-94); Monocytes # (Auto) 0.4 K/mm3 (0.0-0.8); Monocytes % (Auto) 11.7 % (0.0-7.3); Platelet Count 189 K/mm3 (140-440); Red Blood Count 4.54 M/mm3 (3.65-5.03); Red Cell Distribution Width 11.9 % (13.2-15.2)
[2019-03-22 05:22] VITALS: BP 97/49
[2019-03-22 05:40] LABS: BUN/Creatinine Ratio 11; Blood Urea Nitrogen 9 mg/dL (9-20); Calcium 8.5 mg/dL (8.4-10.2); Hemolysis Index 3
[2019-03-22] MEDS: LEVAQUIN 500MG/100ML 500 MG/100 ML BAG IV SCH (09:33)
[2019-03-22] MEDS: SODIUM CHLORIDE FLUSH SYRINGE 10 ML IV SCH (10:52)
--- NOTE | 2019-03-22 11:34 | Gastroenterology Progress Note ---
Assessment and Plan Patient is better, please discharge home now from GI standpoint When discharge please send home with total 5 days abx of cipro/flagyl (so 3 more days worth from now) and he should follow up with me in clinic in 2-4 weeks as an outpatient - Patient Problems (1) Acute diverticulitis Current Visit: Yes Status: Acute Subjective Date of service: 03/22/19 Principal diagnosis: Diverticulitis Interval history: Pt reports feeling well, tolerating diet, wants to be discharged Objective - Constitutional Vitals: Temp Pulse Resp BP Pulse Ox 98.3 F 63 18 97/49 97 03/22/19 04:53 03/22/19 04:53 03/22/19 04:53 03/22/19 04:53 03/22/19 04:53 General appearance: no acute distress - Respiratory Respiratory effort: normal - Gastrointestinal General gastrointestinal: Present: soft, non-tender - Labs CBC & Chem 7: 03/22/19 04:31 03/22/19 04:31 Labs: Laboratory Results - last 24 hr 03/22/19 03/22/19 04:31 04:31 WBC 3.8 L RBC 4.54 Hgb 12.6 Hct 37.9 MCV 84 MCH 28 MCHC 33 RDW 11.9 L Plt Count 189 Lymph % (Auto) 34.4 [place] % (Auto) 11.7 H Eos % (Auto) 1.1 Baso % (Auto) 0.6 Lymph # 1.3 [place] # 0.4 Eos # 0.0 Baso # 0.0 Seg Neutrophils % 52.2 Seg Neutrophils # 2.0 Sodium 138 Potassium 4.1 Chloride 104.1 Carbon Dioxide 25 Anion Gap 13 BUN 9 Creatinine 0.8 Estimated GFR > 60 BUN/Creatinine Ratio 11 Glucose 89 Calcium 8.5
--- NOTE | 2019-03-22 11:58 | Discharge Summary ---
Providers - Providers Date of Admission: 03/21/19 11:38 Date of discharge: 03/22/19 Attending physician: KEO DUNN 03/21/19 00:20 Consult to Physician [CONS] Routine Comment: Consulting Provider: EVERETT HODGSON Physician Instructions: Reason For Exam: diverticulitis 03/21/19 02:00 Consult to Physician [CONS] Routine Comment: Consulting Provider: LORRAINE HENLEY Physician Instructions: Reason For Exam: diverticulitis Primary care physician: CHARLES SUAZO Hospitalization Condition: Stable Pertinent studies: CT abdomen/pelvis: 1. Moderate, acute diverticulitis near the junction of the descending and sigmoid colon without abscess. After the patient's acute episode resolves, colonoscopy may be helpful in excluding underlying neoplasm. 2. 2 cm left adrenal adenoma. Hospital course: 48-year-old -[place] male with history of obesity and hypertension who presents to [facility] ED with complaints of left upper quadrant and left lower quadrant pain with radiation to left flank. CT abdomen pelvis showed Moderate, acute diverticulitis near the junction of the descending and sigmoid colon without abscess. Per GI and GS need consevative Mx. Placed on IV abx, trended white count. Patient tolerated oral diet and was discharged home in stable condition. Discharge diagnosis and management: 1. Acute Diverticulitis with SIRS, POA -CT abdomen and pelvis showed: Moderate, acute diverticulitis near the junction of the descending and sigmoid colon without abscess -Dr. Hodgson (General Surgery) consulted, no acute surgical need -WBC initially 14.3 trending down -Plced on IV Levaquin and IV Flagyl, then changed to po before discharge -Advanced diet as tolerated 2. 2 cm left adrenal adenoma -Incidentally seen on CT abdomen and pelvis -Outpatient follow-up 3. Acute Abdominal Pain, resolved -Likely due to #1 -Continue supportive care -Pain management 4. Urinary tract infection -Urine WBC 19.0 -Urine culture pending -On IV antibiotics 5. Hypertension -Monitored BP -given IV hydralazine when necessary 6. DVT PPX -on [facility] physical: GENERAL: well-developed morbidly obese -[place] male lying on bed appeared to be in no discomfort. HEENT: Normocephalic. Atraumatic. No conjunctival congestion or icterus. Patient has moist mucous membranes. NECK: Supple. Trachea midline. CHEST/LUNGS: Clear to auscultated bilaterally, breathing nonlabored. No wheezes crackles or rhonchi. HEART/CARDIOVASCULAR: Regular in rate and rhythm. S1 and S2 positive. ABDOMEN: Abdomen is soft, nontender. Patient has normal bowel sounds. SKIN: There is no rash. Warm and dry. NEURO: No focal motor deficit. Follows command. MUSCULOSKELETAL: No joint effusion or tenderness. EXTRIMITY: No edema, no cyanosis or clubbing. PSYCH: Cooperative. Disposition: DC-01 TO HOME OR SELFCARE Time spent for discharge: 34 minutes Core Measure Documentation - Palliative Care Palliative Care/ Comfort Measures: Not Applicable - Core Measures Any of the following diagnoses?: none Exam - Constitutional Vitals: Temp Pulse Resp BP Pulse Ox 98.3 F 63 18 97/49 97 03/22/19 04:53 03/22/19 04:53 03/22/19 04:53 03/22/19 04:53 03/22/19 04:53 Plan Activity: advance as tolerated Weight Bearing Status: Weight Bear as Tolerated Diet: low fat, low salt, other (high fibre diet) Follow up with: TOBI BEYBOULDER MD CARTER [Referring] - 3-5 Days FRACISCO DRUMMOND MD [Staff Physician] - 7 Days Prescriptions: metroNIDAZOLE [Flagyl] 500 mg PO Q8HR #15 tablet levoFLOXacin [Levaquin] 750 mg PO QDAY #5 tablet
== END 2019-03-22 13:23 | disposition home or self-care (01) | DRG 690 ==
LOC: ED 13:25 → 3A 19:09 → UNDODISOB 21:20 → 3A 21:20 → OBSVTOIN 03-21 11:38
PROVIDERS: ADMIT Internal Medicine; ATTEND Internal Medicine
DX: N39.0 Urinary tract infection, site not specified (principal); K57.32 Diverticulitis of large intestine without perforation or abscess without bleeding; D35.02 Benign neoplasm of left adrenal gland; I10 Essential (primary) hypertension; Z79.82 Long term (current) use of aspirin
CPT/HCPCS: 36415; 74176; 80048; 80053; 80307; 81001; 85025; 87086; G0378; J1650; J1956; J2543; J7030; Q0162

== ENCOUNTER 2020-07-07 08:24 | Emergency (ER) | payer SELFPAY ==
[2020-07-07] MEDS ORDERED: ACETAMINOPHEN 325 MG TAB ONE (08:30)
[2020-07-07 08:34] VITALS: BP 144/94
[2020-07-07] MEDS ORDERED: ACETAMINOPHEN 325 MG TAB PO ONE (08:37)
--- NOTE | 2020-07-07 09:11 | XRay Report ---
CHEST 2 VIEWS INDICATION: Prod cough, fever. COMPARISON: None FINDINGS: Support devices: None. Heart: Within normal limits. Lungs/pleura: There is poor inspiration with mild bibasilar atelectatic changes. No acute air space d isease or interstitial disease. No pleural effusion or pneumothorax. Additional findings: None. IMPRESSION: No acute findings. Mild bibasilar atelectatic changes. Signer Name: Yoni Lora Jr, MD Signed: 07/07/2020 9:07 AM Workstation Name: [id number]
[2020-07-07] MEDS ORDERED: IPRATROPIUM/ALBUTEROL SULFATE 3 ML AMPUL.NEB IH ONE (11:17)
[2020-07-07] MEDS ORDERED: predniSONE 20 MG TAB PO ONE (11:17)
--- NOTE | 2020-07-07 11:22 | Emergency Department Report ---
- General Chief Complaint: Upper Respiratory Infection Stated Complaint: CHEST PAIN Time Seen by Provider: 07/07/20 11:04 Source: patient Mode of arrival: Ambulatory Limitations: No Limitations - History of Present Illness Initial Comments: 50-year-old -[place] obese male with no significant past medical history presents to the ER today complaining of Chest pain and Cough. Patient states that his symptoms started about 2 days ago. Patient states that started with a productive cough with yellow-white sputum, which has also been blood-tinged intermittently for the past couple days. Patient describes a sharp left-sided pain in his chest which seems to be worse with cough. He reports associated wheezing and shortness of breath, intermittent chills and subjective fever. He denies any rhinorrhea, nasal congestion or body aches. He denies tobacco use, but he states that he does work around a coworker who tends to smoke. He denies any known lung disease or cardiac disease. He denies any ill contacts, or known COVID-19 contacts. MD Complaint: cough, other (Chills, Fever, Chest pain, SOB) -: Gradual, days(s) (2) - Related Data Previous Rx's Medication Instructions Recorded Last Taken Type Albuterol Mdi (or & Nicu Only) 2 puff IH QID PRN #8.5 gram 07/07/20 Unknown Rx [ProAir HFA Inhaler] Azithromycin [Zithromax Z-LORI] 250 mg PO DAILY 5 Days #5 tab 07/07/20 Unknown Rx Benzonatate [Tessalon Perles] 100 mg PO Q8HR #30 capsule 07/07/20 Unknown Rx predniSONE [Deltasone] 50 mg PO QDAY #4 tab 07/07/20 Unknown Rx Allergies Allergy/AdvReac Type Severity Reaction Status Date / Time No Known Allergies Allergy Verified 03/20/19 13:27 ED Review of Systems ROS: Stated complaint: CHEST PAIN Other details as noted in HPI Comment: All other systems reviewed and negative Constitutional: chills, fever ENT: denies: ear pain, throat pain Respiratory: cough, shortness of breath Cardiovascular: chest pain Gastrointestinal: denies: abdominal pain, nausea, diarrhea Genitourinary: denies: urgency, dysuria Musculoskeletal: denies: back pain, joint swelling, arthralgia Skin: denies: rash, lesions Neurological: denies: headache, weakness, paresthesias ED Past Medical Hx - Past Medical History Previous Medical History?: No Hx Hypertension: No Hx CVA: No Hx Heart Attack/AMI: No Hx Congestive Heart Failure: No Hx Diabetes: No Hx GERD: No Hx Sickle Cell Disease: No Hx Arthritis: No Hx Asthma: No Hx COPD: No Hx HIV: No Additional medical history: heart murmer - Surgical History Past Surgical History?: No - Social History Smoking Status: Never Smoker Substance Use Type: None - Medications Home Medications: Home Medications Medication Instructions Recorded Confirmed Last Taken Type Albuterol Mdi (or & Nicu Only) 2 puff IH QID PRN #8.5 gram 07/07/20 Unknown Rx [ProAir HFA Inhaler] Azithromycin [Zithromax Z-LORI] 250 mg PO DAILY 5 Days #5 tab 07/07/20 Unknown Rx Benzonatate [Tessalon Perles] 100 mg PO Q8HR #30 capsule 07/07/20 Unknown Rx predniSONE [Deltasone] 50 mg PO QDAY #4 tab 07/07/20 Unknown Rx ED Physical Exam - General Limitations: No Limitations General appearance: alert, in no apparent distress - Head Head exam: Present: atraumatic, normocephalic, normal inspection - Eye Eye exam: Present: normal appearance, PERRL, EOMI - ENT ENT exam: Present: normal exam, mucous membranes moist - Neck Neck exam: Present: normal inspection, full ROM. Absent: meningismus - Respiratory Respiratory exam: Present: decreased breath sounds (Mild diffusely). Absent: respiratory distress, wheezes, rales, rhonchi - Cardiovascular Cardiovascular Exam: Present: normal rhythm, tachycardia, normal heart sounds - GI/Abdominal GI/Abdominal exam: Present: soft. Absent: distended, tenderness - Back Exam Back exam: Present: normal inspection, full ROM - Neurological Exam Neurological exam: Present: alert, oriented X3, CN II-XII intact - Psychiatric Psychiatric exam: Present: normal affect, normal mood - Skin Skin exam: Present: intact ED Course Vital Signs 07/07/20 07/07/20 08:30 12:07 Temperature 100.8 F H Pulse Rate 111 H Pulse Rate [ 109 H Anterior Bilateral Throughout] Respiratory 20 Rate Respiratory 19 Rate [Anterior Bilateral Throughout] Blood Pressure 144/94 [Right] O2 Sat by Pulse 96 Oximetry ED Medical Decision Making - Lab Data Result diagrams: 07/07/20 12:18 07/07/20 12:18 - EKG Data EKG shows normal: sinus rhythm - EKG Data Interpretation: no acute changes, normal EKG - Radiology Data Radiology results: report reviewed - Medical Decision Making 1320 --50-year-old male presents to the ER today complaining of a productive cough, chest pain, wheezing and shortness of breath. Patient reports some improvement of his symptoms after nebulizer treatment. Patient is currently resting comfortably. He does not appear to be in any acute distress. His heart rate and temperature did improve after Tylenol. His chest x-ray shows bibasilar atelectasis but otherwise nothing acute. His EKG showed no acute ischemic changes, significant dysrhythmia. His troponin is negative. CBC, and CMP unremarkable. His flu screen is negative. Patient appears well, there is no signs of respiratory distress or signs of systemic toxicity. He appears hydrated. Suspect his symptoms are likely related to bronchitis at this time. His history, exam, diagnostic testing and current condition does not demonstrate any infectious processes such as meningitis, severe pneumonia, sepsis, serious bacterial infection, acute coronary syndrome, PE, or any other significant systemic illness requiring further treatment, testing, or admission or consultation at this time. Discussed lab tests, as well as imaging results, suspected diagnosis and sumit tment plan with patient. I do recommend that patient get outpatient COVID-19 testing. Did discuss worsening signs and symptoms with the patient and informed to return immediately to the ER if any of those signs and symptoms develop. Patient expressed understanding of instructions and agrees with plan. Patient stable at time of discharge. Critical care attestation.: If time is entered above; I have spent that time in minutes in the direct care of this critically ill patient, excluding procedure time. ED Disposition Clinical Impression: Acute bronchitis, Atypical chest pain Disposition: DC-01 TO HOME OR SELFCARE Is pt being admited?: No Does the pt Need Aspirin: No Condition: Stable Instructions: Acute Bronchitis (ED), Acute Bronchitis, Adult, [id number], Chest Pain (ED), Nonspecific Chest Pain, Adult, [id number] Additional Instructions: Take the antibiotics, prednisone, cough medication and use the inhaler as prescribed. I recommend that you follow-up with either your primary care doctor, [facility] drive-through, local health department, or an urgent care or any facility offering COVID-19 testing. You will need to quarantine at home until you get your test results. If your test results are positive you will need to quarantine at home for 2 weeks. If your symptoms worsens or changes in any way as discussed please return immediately to the emergency room. Prescriptions: predniSONE [Deltasone] 50 mg PO QDAY #4 tab Albuterol Mdi (or & Nicu Only) [ProAir HFA Inhaler] 2 puff IH QID PRN #8.5 gram PRN Reason: Shortness Of Breath Benzonatate [Tessalon Perles] 100 mg PO Q8HR #30 capsule Azithromycin [Zithromax Z-LORI] 250 mg PO DAILY 5 Days #5 tab Referrals: PRIMARY CARE,MD [Primary Care Provider] - 3-5 Days Forms: Work/School Release Form(ED) Time of Disposition: 13:16
[2020-07-07 12:42] LABS: Basophils % (Auto) 0.7 % (0.0-1.8); Eosinophils % (Auto) 0.1 % (0.0-4.3); Hematocrit 41.8 % (35.5-45.6); Hemoglobin 13.8 gm/dl (11.8-15.2); Lymphocytes % (Auto) 33.3 % (13.4-35.0); Mean Corpuscular HGB Conc 33 % (32-34); Mean Corpuscular Volume 83 fl (84-94); Monocytes # (Auto) 0.3 K/mm3 (0.0-0.8); Monocytes % (Auto) 8.8 % (0.0-7.3); Platelet Count 163 K/mm3 (140-440); Red Blood Count 5.03 M/mm3 (3.65-5.03); Red Cell Distribution Width 12.2 % (13.2-15.2)
[2020-07-07 13:02] LABS: Alanine Aminotransferase 24 units/L (7-56); Albumin 3.8 g/dL (3.9-5); BUN/Creatinine Ratio 12; Blood Urea Nitrogen 12 mg/dL (9-20); Calcium 9.1 mg/dL (8.4-10.2); Hemolysis Index 3
[2020-07-07] MEDS ORDERED: POTASSIUM CHLORIDE ER 20 MEQ TAB PO ONE (13:13)
== END 2020-07-07 13:27 | disposition home or self-care (01) ==
LOC: ED 08:24
DX: J20.9 Acute bronchitis, unspecified (principal)
CPT/HCPCS: 36415; 71046; 80053; 84484; 85025; 87400; 93005; 94644; 99284; J7512; 94640